=== PATIENT | male | born 1980 | race Caucasian/White ===

== ENCOUNTER 2023-03-31 14:54 | Inpatient (IN) | payer OTHER ==
[2023-03-31 15:23] VITALS: BMI 27.7
[2023-03-31] MEDS ORDERED: COLLOIDAL OATMEAL 1 BAR EACH TP PRN (16:14)
[2023-03-31] MEDS ORDERED: IBUPROFEN 600 MG TABLET (FP) PO PRN (16:14)
[2023-03-31] MEDS ORDERED: guaiFENesin 600 MG TABLET.ER (FP) PO PRN (16:14)
[2023-03-31] MEDS ORDERED: NALOXONE HCL (KLOXXADO) 8 MG SPRAY NS PRN (16:14)
[2023-03-31] MEDS ORDERED: DICYCLOMINE HCL 10 MG CAPSULE PO PRN (16:14)
[2023-03-31] MEDS ORDERED: BENZONATATE 200 MG CAPSULE PO PRN (16:14)
[2023-03-31] MEDS ORDERED: BISMUTH SUBSALICYLATE 524 MG/30 ML PO PRN (16:14)
[2023-03-31] MEDS ORDERED: POLYETHYLENE GLYCOL (HEALTHYLAX) 3350 17 GM PACKET PO PRN (16:14)
[2023-03-31] MEDS ORDERED: ONDANSETRON *ODT* 4 MG TABLET SL PRN (16:14)
[2023-03-31] MEDS ORDERED: ACETAMINOPHEN 325 MG TABLET (FP) PO PRN (16:14)
[2023-03-31] MEDS ORDERED: MAGNESIUM HYDROX 2400MG/30ML ORAL SUSPENSION 30 ML CUP PO PRN (16:14)
[2023-03-31] MEDS ORDERED: METHOCARBAMOL 500 MG TABLET PO PRN (16:14)
[2023-03-31] MEDS ORDERED: LOPERAMIDE HCL 2 MG CAPSULE PO PRN (16:14)
[2023-03-31] MEDS ORDERED: NALOXONE HCL 0.4 MG/ML VIAL IM PRN (16:14)
[2023-03-31] MEDS ORDERED: MAG HYDROX/AL HYDROX/SIMETH 30 ML UNIT-DOSE CUP PO PRN (16:14)
[2023-03-31] MEDS ORDERED: BENZOCAINE/MENTHOL (CHLORASEPTIC ) LOZENGE MM PRN (16:14)
[2023-03-31] MEDS ORDERED: IBUPROFEN 400 MG TABLET (FP) PO PRN (16:14)
[2023-03-31] MEDS ORDERED: NICOTINE 10 MG CARTRIDGE (INHALER) IH PRN (16:14)
[2023-03-31] MEDS ORDERED: AMMONIUM LACTATE 12% LOTION 225 GM BOTTLE TP PRN (16:14)
[2023-03-31] MEDS ORDERED: chlordiazePOXIDE HCL 25 MG CAPSULE ONE (17:07)
[2023-03-31] MEDS: chlordiazePOXIDE HCL 25 MG CAPSULE PO SCH ×2 (17:15→22:25)
[2023-03-31] MEDS: THIAMINE HCL 100 MG TABLET (FP) PO SCH (22:25)
[2023-03-31] MEDS: MELATONIN 5 MG TABLETS PO SCH (22:27)
[2023-04-01] MEDS: chlordiazePOXIDE HCL 25 MG CAPSULE PO SCH ×4 (05:31→22:39)
[2023-04-01] MEDS: BICTEGRAV/EMTRICIT/TENOFOV (BIKTARVY) 50-200-25 MG TABLET PO SCH (10:04)
[2023-04-01] MEDS: PRENATAL VITAMINS W/ FOLIC ACID TABLET (FP) PO SCH (10:04)
[2023-04-01 10:52] LABS: HEMATOCRIT 36.7 % (35.4-49); HEMOGLOBIN 12.8 GM/dL (11.7-16.9); MCH 34.8 pg (25.7-33.7); MCHC 34.8 g/dl (32.0-35.9); MEAN CELL VOLUME 99.9 fl (80-96); MEAN PLT VOLUME 8.4 fl (7.5-11.1); PLATELET COUNT 130 10^3/uL (134-434); RBC 3.67 M/mm3 (4.00-5.60); RDW 14.4 % (11.9-15.9); WHITE BLOOD COUNT 3.5 K/mm3 (4.0-10.0)
[2023-04-01 10:55] LABS: POTASSIUM 3.3 mmol/L (3.5-5.1)
[2023-04-01 11:01] LABS: ALBUMIN 3.3 g/dl (3.4-5.0); BLOOD UREA NITROGEN 7.3 mg/dL (7-18); CALCIUM 8.4 mg/dL (8.5-10.1)
[2023-04-01 11:07] LABS: BILIRUBIN,TOTAL 0.8 mg/dL (0.2-1); TOT PROT 6.9 g/dl (6.4-8.2)
[2023-04-01] MEDS: traZODone HCL 100 MG TABLET (FP) PO SCH (22:33)
[2023-04-01] MEDS: risperiDONE 2 MG TABLET PO SCH (22:33)
[2023-04-01] MEDS: BENZTROPINE MESYLATE 1 MG TABLET PO SCH (22:33)
[2023-04-01] MEDS: THIAMINE HCL 100 MG TABLET (FP) PO SCH (22:35)
[2023-04-01] MEDS: PRAZOSIN HCL 1 MG CAPSULE PO SCH (22:35)
[2023-04-01] MEDS: MELATONIN 5 MG TABLETS PO SCH (22:42)
[2023-04-02] MEDS: chlordiazePOXIDE HCL 25 MG CAPSULE PO SCH ×4 (05:39→22:17)
[2023-04-02] MEDS: BICTEGRAV/EMTRICIT/TENOFOV (BIKTARVY) 50-200-25 MG TABLET PO SCH (07:33)
[2023-04-02] MEDS ORDERED: POTASSIUM CHLORIDE ORAL LIQUID 20 MEQ/15 ML PO ONE (10:05)
[2023-04-02] MEDS: PRENATAL VITAMINS W/ FOLIC ACID TABLET (FP) PO SCH (10:16)
[2023-04-02] MEDS: PRAZOSIN HCL 1 MG CAPSULE PO SCH (22:14)
[2023-04-02] MEDS: traZODone HCL 100 MG TABLET (FP) PO SCH (22:14)
[2023-04-02] MEDS: risperiDONE 2 MG TABLET PO SCH (22:14)
[2023-04-02] MEDS: THIAMINE HCL 100 MG TABLET (FP) PO SCH (22:14)
[2023-04-02] MEDS: BENZTROPINE MESYLATE 1 MG TABLET PO SCH (22:14)
[2023-04-02] MEDS: MELATONIN 5 MG TABLETS PO SCH (23:59)
[2023-04-03] MEDS: chlordiazePOXIDE HCL 10 MG CAPSULE PO SCH ×4 (05:26→22:29)
[2023-04-03] MEDS: BICTEGRAV/EMTRICIT/TENOFOV (BIKTARVY) 50-200-25 MG TABLET PO SCH (07:16)
[2023-04-03] MEDS: PRENATAL VITAMINS W/ FOLIC ACID TABLET (FP) PO SCH (10:33)
[2023-04-03] MEDS ORDERED: POTASSIUM CHLORIDE TABS 20 MEQ TABLET.ER (FP) PO ONE (11:54)
[2023-04-03] MEDS: guaiFENesin 600 MG TABLET.ER (FP) PO SCH ×2 (13:46→22:28)
[2023-04-03] MEDS: risperiDONE 2 MG TABLET PO SCH (22:28)
[2023-04-03] MEDS: traZODone HCL 100 MG TABLET (FP) PO SCH (22:29)
[2023-04-03] MEDS: MELATONIN 5 MG TABLETS PO SCH (22:29)
[2023-04-03] MEDS: BENZTROPINE MESYLATE 1 MG TABLET PO SCH (22:29)
[2023-04-03] MEDS: THIAMINE HCL 100 MG TABLET (FP) PO SCH (22:29)
[2023-04-03] MEDS: PRAZOSIN HCL 1 MG CAPSULE PO SCH (22:29)
[2023-04-04] MEDS: chlordiazePOXIDE HCL 10 MG CAPSULE PO SCH ×2 (05:21→17:28)
[2023-04-04] MEDS: BICTEGRAV/EMTRICIT/TENOFOV (BIKTARVY) 50-200-25 MG TABLET PO SCH (07:00)
[2023-04-04] MEDS: PRENATAL VITAMINS W/ FOLIC ACID TABLET (FP) PO SCH (10:19)
[2023-04-04] MEDS: guaiFENesin 600 MG TABLET.ER (FP) PO SCH ×2 (10:19→22:29)
[2023-04-04] MEDS: MELATONIN 5 MG TABLETS PO SCH (22:29)
[2023-04-04] MEDS: risperiDONE 2 MG TABLET PO SCH (22:29)
[2023-04-04] MEDS: BENZTROPINE MESYLATE 1 MG TABLET PO SCH (22:29)
[2023-04-04] MEDS: THIAMINE HCL 100 MG TABLET (FP) PO SCH (22:29)
[2023-04-04] MEDS: traZODone HCL 100 MG TABLET (FP) PO SCH (22:29)
[2023-04-04] MEDS: PRAZOSIN HCL 1 MG CAPSULE PO SCH (22:30)
[2023-04-05] MEDS ORDERED: chlordiazePOXIDE HCL 10 MG CAPSULE PO ONE (05:00)
[2023-04-05] MEDS: BICTEGRAV/EMTRICIT/TENOFOV (BIKTARVY) 50-200-25 MG TABLET PO SCH (07:57)
[2023-04-05 09:24] VITALS: BP 121/73; PULSE 102; RESP 20; TEMP 97.1
[2023-04-05] MEDS: PRENATAL VITAMINS W/ FOLIC ACID TABLET (FP) PO SCH (10:26)
[2023-04-05] MEDS: guaiFENesin 600 MG TABLET.ER (FP) PO SCH (10:27)
== END 2023-04-05 11:16 | disposition home or self-care (01) | DRG 775 ==
LOC: YASAS 14:54 → Y6N 16:48
PROVIDERS: ADMIT Allergy & Immunology; ATTEND Surgery
PROC: HZ2ZZZZ Detoxification Services for Substance Abuse Treatment (ICD-10-PCS; principal; 2023-03-31)
DX: F10.230 Alcohol dependence with withdrawal, uncomplicated (principal); F31.9 Bipolar disorder, unspecified; F10.282 Alcohol dependence with alcohol-induced sleep disorder; F10.280 Alcohol dependence with alcohol-induced anxiety disorder; B20 Human immunodeficiency virus [HIV] disease; E87.5 Hyperkalemia; Z62.810 Personal history of physical and sexual abuse in childhood; Z79.899 Other long term (current) drug therapy; Z86.19 Personal history of other infectious and parasitic diseases; Z56.0 Unemployment, unspecified; Z59.01 Sheltered homelessness
CPT/HCPCS: 26055; 36415; 80053; 84132; 85027; 86593; 86780; C9803-CS; U0003; U0005